=== PATIENT | male | born 1935 | race Caucasian/White ===

== ENCOUNTER 2016-08-06 22:09 | Inpatient (IN) | payer MEDICARE ==
--- NOTE | ~2016-08-06 | CN ---
Consultation Report [facility] [address] [place]. [address] NAME: Danielle GONZALEZ V : 37 STATUS : ADM IN [facility]#: [id number] AGE: 81 ADM/REG DATE : 08/06/16 MR#: [id number] REPORT SERV DATE: 08/07/16 DICTATED BY: HARRISON ZURITA III DATE: 08/07/16 REPORT STATUS : Draft TRANSCRIBED BY: MODL DATE: 08/07/16 DATE OF CONSULTATION: 08/07/2016 REASON FOR CONSULT: Bladder cancer, hematuria, and UTI. HISTORY OF PRESENT ILLNESS: The patient is an 81-year-old white male, who was at a restaurant and became dizzy. He actually passed out and was brought to the emergency room where a CT showed left frontal lobe CVA. The symptoms subsequently subsided. He has a long history of transitional cell carcinoma having had a right nephrectomy and ureterectomy. 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 Approximately a year and a half ago, he underwent a left ureteral re-implant. This fall, he was discovered to have an extravesical mass, approximately 6 cm, with iliac nodes biopsy positive for transitional cell, this was noted to be invading the bladder wall, and the patient has had hematuria off and on since April. Recently, he had a UTI with enterococcus which was treated with Cipro; this was finished on Wednesday. He has had some voiding issues, mostly irritative with nocturia, urgency, and frequency of small amounts. He is on Flomax. He was admitted for possible UTI and stroke workup. PAST MEDICAL HISTORY: Includes chronic renal insufficiency, creatinine running from 1.8 to 2. He has congestive heart failure, coronary artery disease with previous stents, aortic stenosis with aortic valve regurgitation and a valve. He also has a history of hypothyroidism, atrial fibrillation, and BPH. MEDICATIONS: Can be found on the chart, did include aspirin and Flomax. He formerly was on Plavix, and this has been stopped. SOCIAL HISTORY: He does not drink or smoke, is . REVIEW OF SYSTEMS: Pertinent only for the above-noted symptoms. PHYSICAL EXAMINATION: GENERAL: On exam, he is alert and oriented. VITAL SIGNS: Stable. NECK: Supple. LUNGS: Clear. HEART: He has an irregular rhythm. ABDOMEN: Soft. Bowel sounds are present and active. Liver and spleen are not enlarged. There is fullness in the suprapubic area, but the patient did need to void at that time. : External genitalia are normal. EXTREMITIES: There is minimal pedal edema. LABORATORY DATA: His lab revealed a creatinine of 1.8, white count was 12.9, hemoglobin of 11.7, had greater than 182 rbc's and wbc's. Consultation Report [address] [place]. [address] NAME: Danielle GONZALEZ V : 37 STATUS : ADM IN PAT#: [id number] AGE: 81 ADM/REG DATE : 08/06/16 MR#: [id number] REPORT SERV DATE: 08/07/16 DICTATED BY: HARRISON ZURITA III DATE: 08/07/16 REPORT STATUS : Draft TRANSCRIBED BY: KAROLINA DATE: 08/07/16 CT showed the above-noted stroke. He received a dose of vancomycin and is now on Rocephin. IMPRESSION: Impression is that of 1. Acute versus subacute cerebrovascular accident which seems to have resolved. 2. Metastatic transitional cell carcinoma. The patient was discussed at [facility], and according Dr. Wallace's notes, no additional treatment, chemotherapy, or radiation was suggested. In his notes, he felt that the bladder invasion by the tumor would be managed with fulguration and possible radiation therapy if bleeding became profuse. At this time, his urinalysis may or may not reflect a urinary tract infection. He has been on Cipro and his symptoms which do include a fever several weeks ago have resolved. RECOMMENDATIONS: Recommendations for ongoing treatment would be: 1. To await a culture. I am going to check a postvoid residual. The patient is adamant about not having a catheter, so if it is elevated, we may do intermittent catheterization on him. 2. Stroke prevention. We would prefer not for him to be on anticoagulants if at all possible since this will very likely precipitate significant bleeding. Dr. Wallace will be back Wednesday, Dr. Schneider will be covering over the weekend. OB/MODL Harrison Zurita III, M.D. / [id number] CC: Bryce Rodriguez M.D.
--- NOTE | ~2016-08-06 | DS ---
Discharge Summary [facility] [address] [place]. [address] NAME: Danielle GONZALEZ V : 37 STATUS : DIS IN PAT#: [id number] AGE: 81 ADM/REG DATE : 08/06/16 MR#: [id number] REPORT SERV DATE: 08/12/16 DICTATED BY: NICK VALENCIA DATE: 08/11/16 REPORT STATUS : Draft TRANSCRIBED BY: MODL DATE: 08/11/16 ADMISSION DATE: 08/06/2016 DISCHARGE DATE: 08/11/2016 DISCHARGE DIAGNOSES: 1. Fever, high WBC count, postobstruction. 2. 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 3. Syncopal episode, 08/06/2016. 4. Chronic atrial fibrillation. 5. Chronic kidney disease, stage 3. CONSULTATIONS: 1. , Dr. Harrison Zurita. 2. Neuro, Debra Marr, [facility]. IMAGIN. CT brain, 08/06/2016. Impression: Suspected acute to subacute 1 x 2.5 cm anterior left frontal lobe CVA extending from the periventricular deep white matter adjacent to the left frontal horn, to the overlying frontal lobe cortex. Only mild localized mass effect on the overlying sulci. Mild diffuse cerebral changes. 2. Chest x-ray, 08/07/2016. Mild venous congestion with minimal bibasilar atelectasis. Stable enlargement of the cardiac silhouette with evidence of previous sternotomy and pacemaker placement. 3. MRI of the brain, 08/07/2016. Impression: Limited examination without contrast. Finding in the left frontal lobe suggest remote infarction. No mass effect or resected diffusion is seen to suggest metastasis or acute infarction. 4. CT abdomen and pelvis, 08/08/2016. Impression: Enlarging soft tissue mass in the left pelvis along the expected course of the left pelvic ureter, invading into the left lateral wall, measuring up to 9 x 9.5 x 10.7 x 9.4 cm enlarging compared to 05/19/2016, consistent with enlarging recurrent urethral malignancy. Stable probable mildly hyperdense 1.7 cm left renal cortical cyst upper pole left kidney. Probable small left adrenal adenomas thickening the apex of the left adrenal gland. Stable changes of the right adrenal adrenalectomy and nephrectomy, and ventral mesh hernia repair. HOSPITAL COURSE: Please refer to history and physical dictated by Dr. Doss on 08/07/2016 as well as consultation notes for complete admission details. This patient is an 81-year-old gentleman, who has a known history of bladder cancer followed by Dr. Wallace as well as stage 3 chronic kidney disease caused to the left kidney after a right nephrectomy, congestive heart failure, aortic stenosis. Upon admission, the patient had been unable to eat, became dizzy, and passed out. The patient was brought to [facility] via ambulance. The patient was admitted for further evaluation and testing due to progression of disease. The patient has been discharged home with [facility] per the patient and 's request. Discharge warranted per Hospice of Discharge Summary [place] [id number] [facility] [place]. [address] NAME: Danielle GONZALEZ V : 37 STATUS : DIS IN [facility]#: [id number] AGE: 81 ADM/REG DATE : 08/06/16 MR#: [id number] REPORT SERV DATE: 08/12/16 DICTATED BY: NICK VALENCIA DATE: 08/11/16 REPORT STATUS : Draft TRANSCRIBED BY: KAROLINA DATE: 08/11/16 Gaffney. This discharge took less than 30 minutes. [facility]/KAROLINA Nick Valencia NP / [id number] CC: MD Ashish Conroy M.D.
--- NOTE | ~2016-08-06 | HP ---
History And Physical [place] [address] [facility] [place]. [address] NAME: Danielle GONZALEZ V : 37 STATUS : ADM Jessica PAT#: [id number] AGE: 81 ADM/REG DATE : 08/06/16 MR#: [id number] REPORT SERV DATE: 08/07/16 DICTATED BY: JEFFERY ANGELES DATE: 08/07/16 REPORT STATUS : Draft TRANSCRIBED BY: MODL DATE: 08/07/16 DATE OF ADMISSION: 08/06/2016 CHIEF COMPLAINT: Passed out at a restaurant today. HISTORY OF PRESENT ILLNESS: This is an 81-year-old male with a history of bladder cancer, followed by Dr. Chucky Wallace, stage III chronic kidney disease caused to the left kidney after right nephrectomy, congestive heart failure, aortic stenosis with bioprosthetic valve AVR, who was at the [employer] this evening with his for dinner. After dinner, he had to go to the restroom and had no issues. He walked out to the restroom and suddenly started feeling very unstable. He felt like he was very dizzy and his legs were giving away. His was at bedside, noticed this, and he confirmed that he was not feeling right at all. She immediately made him sit in the lobby on a bench whereupon Mr. Gonzalez leaned back and passed out. He was sliding to the ground when some of the people around him some ladies offered help and lowered him to the ground. EMS was summoned and the patient was brought to the emergency room here. In the emergency room, initial workup revealed he had a urinary tract infection, leukocytosis, and a CT scan of his head showed acute to subacute 1-2.5 cm anterior left frontal lobe CVA. Hospitalist Service was asked to admit him for further evaluation and treatment. At the time of my evaluation, Mr. Gonzalez's symptoms had quite resolved. He had no residual neurological problems at this time. He denied any chest pain or palpitations. He had no orthopnea. He had no cough, hemoptysis, night sweats, or weight loss. He has not had any recent fevers, chills, nausea, vomiting, or diarrhea. No other history of recent travel or exposures other than those mentioned above. He denied any hematemesis, hematochezia, or hematuria. PAST MEDICAL HISTORY: Significant for history of ongoing bladder cancer followed by Dr. Wallace, history of chronic kidney disease stage III, solitary left kidney after right nephrectomy, history of congestive heart failure, coronary artery disease with percutaneous intervention, aortic stenosis status post AVR with a bioprosthetic valve, history of hypothyroidism, atrial fibrillation, obstructive sleep apnea on CPAP therapy, melanoma, and benign prostatic hypertrophy. SOCIAL HISTORY: He does not smoke, drink, or use recreational drugs. 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 FAMILY HISTORY: Noncontributory. MEDICATIONS: At home were reviewed by me in the chart today and reordered by me. REVIEW OF SYSTEMS: As in history of present illness. All other systems were reviewed in detail and are quite unremarkable. History And Physical [place] [address] [facility] [place]. [address] NAME: Danielle GONZALEZ V : 37 STATUS : ADM Jessica PAT#: [id number] AGE: 81 ADM/REG DATE : 08/06/16 MR#: [id number] REPORT SERV DATE: 08/07/16 DICTATED BY: JEFFERY ANGELES DATE: 08/07/16 REPORT STATUS : Draft TRANSCRIBED BY: KAROLINA DATE: 08/07/16 PHYSICAL EXAMINATION: GENERAL: This is a pleasant 81-year-old, not in any acute distress. HEENT: Head is atraumatic, normocephalic. He is alert, awake, oriented to time, place, and person. His pupils are equal, reacting to light and accommodating. External ocular muscles are intact. Membranes are moist and pink. Sclerae are nonicteric. NECK: Supple with no jugular venous distention, lymphadenopathy, or thyromegaly. LUNGS: Clear to auscultation with no wheezes, rubs, or crackles. HEART: Heart sounds were regular with no murmurs, rubs, or gallops. ABDOMEN: Soft, nontender. Bowel sounds are present. EXTREMITIES: Showed no cyanosis, clubbing, or edema. NEUROLOGIC: Grossly intact at the time of my evaluation. VITAL SIGNS: Vital signs today showed a temperature of 98.4, pulse 80, respirations 18 a minute, blood pressure was 110/60, oxygen saturations were 93% on room air. LABORATORY DATA: Reviewed on the Tapp[employer] system showed sodium of 143, potassium 3.6, chloride 109, CO2 of 22, BUN was 37 with a creatinine of 1.80. His glucose was 140. Troponin I was 0.02 today and CBC showed a white blood cell count of 12,900, hemoglobin was 11.7, hematocrit 34.9, platelet count was 195,000. Urinalysis showed large blood, moderate leukocyte esterase, nitrite was negative, and greater than 182 rbc's and greater than 182 wbc's as well. Films of the CT scan of his brain were reviewed by me on the PACS today and official radiology report was also reviewed. There is acute to subacute 1-2.5 cm anterior left frontal lobe CVA. Twelve-lead EKG done in the emergency room was reviewed and interpreted by me. There is atrial paced rhythm at a rate of 78 with right bundle branch block. IMPRESSION: 1. Syncope and collapse. 2. Urinary tract infection. 3. Leukocytosis. 4. Acute versus subacute cerebrovascular accident. 5. Bladder cancer. 6. Chronic kidney disease stage III. 7. Aortic stenosis status post aortic valve replacement with a bioprosthetic valve. 8. Hypothyroidism. 9. Obstructive sleep apnea on CPAP therapy. 10.Benign prostatic hypertrophy. 11.Atrial fibrillation. PLAN: We will admit Mr. Gonzalez to the Hospitalist Service to a telemetry bed with neuro checks. After cultures are obtained, we will start him on empiric IV antibiotics. We will follow non-tPA stroke orders. Go ahead and consult Neurology Service to see him in the morning. We will get an MRI/MRA of his brain if possible, otherwise a CTA of his brain. We will also get an echocardiogram and follow the protocol. We will start him on aspirin and statins and other medications per protocol. He will be on SCDs for DVT prophylaxis and proton pump inhibitors. We will also check his TSH and continue his CPAP therapy while here. We will also go ahead and consult Dr. Chucky Wallace to see him in the morning. History And Physical [address] [address] NAME: Danielle GONZALEZ V : 37 STATUS : ADM Jessica PAT#: [id number] AGE: 81 ADM/REG DATE : 08/06/16 MR#: [id number] REPORT SERV DATE: 08/07/16 DICTATED BY: JEFFERY ANGELES DATE: 08/07/16 REPORT STATUS : Draft TRANSCRIBED BY: KAROLINA DATE: 08/07/16 I have discussed the above plans with the patient and the family. Questions were answered and they are agreeable to the above recommendations. Hospitalist Service will be following him during his stay. /KAROLINA Jeffery Angeles M.D. / [id number] CC: Bryce Kinsey M.D.
--- NOTE | ~2016-08-06 | CN ---
Consultation Report [facility] [address] [place]. [address] NAME: Danielle GONZALEZ V : 37 STATUS : ADM IN [facility]#: [id number] AGE: 81 ADM/REG DATE : 08/06/16 MR#: [id number] REPORT SERV DATE: 08/07/16 DICTATED BY: MIGUEL LOJA DATE: 08/07/16 REPORT STATUS : Draft TRANSCRIBED BY: MODL DATE: 08/07/16 NEUROLOGY CONSULTATION DATE OF CONSULTATION: 08/07/2016 REASON FOR CONSULTATION: TIA. HOSPITALIST: Dr. Brandan Cano. HISTORY OF PRESENT ILLNESS: The patient is an 81-year-old male, who went with his and sister to [facility] yesterday to celebrate his sister's 88th birthday . He felt fine and got up after dinner to go to the restroom. He walked out of the restroom and felt "funny and unstable". He felt imbalanced and his got up to help him. He sat down on the bench and "passed out". He passed out only momentarily, his stated it was 5 to 10 seconds and he came to. She mentioned that his speech was not slurred. He did not complain of any visual problems. There was no deficits in strength or sensation. However, he was imbalanced. The patient has been in imbalance for a long time. So, this was not a new finding. Because of his syncopal episode, 911 was called, and he was brought to the hospital. After being evaluated, it was found that the patient had a urinary tract infection, and his CT scan showed that he had a left frontal infarction. Consequently, the patient was admitted for further evaluation and treatment. When questioned more extensively, the patient mentioned that he has a history of atrial fibrillation. He was placed on Pradaxa, but had a lot of urinary bleeding. The patient has a history of bladder cancer with an inoperable tumor. He has been told not to go on anticoagulants, because of his hematuria. At that time, he had his stroke, he was not even on aspirin. PAST MEDICAL HISTORY: Bladder cancer, chronic kidney disease stage III, congestive heart failure, aortic stenosis, hypothyroidism, atrial fibrillation, obstructive sleep apnea, BPH, coronary artery disease, and malignant melanoma. PAST SURGICAL HISTORY: Right nephrectomy, aortic valve replacement in 2014, coronary stent placement, and pacemaker placement. HOME MEDICATIONS: Tylenol p.r.n., Dulcolax 5 mg p.r.n., Coreg 3.125 mg p.o. twice a day, Colace 100 mg p.r.n., Xalatan eye drops one drop OD at bedtime, Synthroid 175 mcg daily, Protonix 40 mg daily, Klor-Con 20 mEq daily, Rythmol 225 mg t.i.d., Flomax 0.4 mg daily, Demadex 20 mg daily, and Ultram 50 mg daily p.r.n. ALLERGIES: NONE. SOCIAL HISTORY: The patient is . He had two children, one from cystic fibrosis at the age of fifteen. 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 He does not smoke, drink alcohol, or use illicits. Consultation Report [place] [id number] [facility] [place]. [address] NAME: Danielle GONZALEZ V : 37 STATUS : ADM IN [facility]#: [id number] AGE: 81 ADM/REG DATE : 08/06/16 MR#: [id number] REPORT SERV DATE: 08/07/16 DICTATED BY: MIGUEL LOJA DATE: 08/07/16 REPORT STATUS : Draft TRANSCRIBED BY: KAROLINA DATE: 08/07/16 FAMILY HISTORY: The patient's mother from old age at her 100. He has no history of his father. He has one sister, who is 88 years old, she has a history of ovarian breast cancer, diabetes, and coronary artery disease. REVIEW OF SYSTEMS: For pertinent positives, please see HPI. PHYSICAL EXAMINATION: GENERAL: The patient is an 81-year-old male, who stands 5 feet 10 inches tall, and weighs 249 pounds. VITAL SIGNS: He is afebrile. Heart rate is 74, respiratory rate 20, O2 saturations on room air 95%, and blood pressure 122/55. NEURO: The patient is alert. He is oriented x4. He is pleasant. He is very chatty and communicates appropriately. No dysarthria. No aphasia. Pupils are 3 mm, PERRLA. Cranial nerves are relatively intact. The patient does have a left facial droop (chronic). Finger- to-nose, [id number], no ataxia. No pronator drift, dysmetria, no tremor. Upper extremity strength is 4/5 bilaterally. Upper DTRs 1+ bilaterally. The patient denies any sensory deficits. Lower extremity strength is 4/5 bilaterally. Patellar reflexes 2+ bilaterally. Downgoing toes. Diminished sensation from mid calf to the toes (chronic). NECK: No carotid bruits, JVD, thyromegaly. CHEST: Slight expiratory wheezing. No cough. CARDIAC: Regular rhythm (an atrially paced grade 3/6 systolic murmur). LABORATORY DATA: CBC is normal. BMP shows a potassium of 3.3, BUN 30, creatinine 1.49. Cholesterol values are elevated, TSH 2.42. Urinalysis is positive for UTI. Chest x-ray, mild venous congestion. CT of the brain, infarct in the left frontal lobe. NIH stroke scale is zero. ASSESSMENT/PLAN: 1. Left frontal region stroke. At this point, the patient does not want to undergo an MRI. He is claustrophobic. His CT was positive for stroke. The patient's life expectancy is less than one year, thus he will not undergo carotid duplex study or echocardiogram with bubble study. The patient is not an anticoagulation candidate, because of his increased risk of bleeding due to his tumor. He will be placed on aspirin 325 mg daily and Lipitor 80 mg daily. PT/OT consult. Bedside dysphagia screen. 2. Atrial fibrillation. The patient will be continued on his current medications with only aspirin added. Thank you again for including us in consultation. We will continue to follow with you. RUI/KAROLINA Consultation Report [facility] [address] [facility] [place]. [address] NAME: Danielle GONZALEZ V : 37 STATUS : ADM IN [facility]#: [id number] AGE: 81 ADM/REG DATE : 08/06/16 MR#: [id number] REPORT SERV DATE: 08/07/16 DICTATED BY: MIGUEL LOJA DATE: 08/07/16 REPORT STATUS : Draft TRANSCRIBED BY: KAROLINA DATE: 08/07/16 JARAD Vincent / [id number] CC: Brandan Cano M.D. Ashish Martinez M.D.
--- NOTE | ~2016-08-06 | IDS ---
Interim Discharge Summary [facility] [address] [place]. [address] NAME: Danielle GONZALEZ V : 37 STATUS : ADM IN PAT#: [id number] AGE: 81 ADM/REG DATE : 08/06/16 MR#: [id number] REPORT SERV DATE: 08/09/16 DICTATED BY: ALIE CANO DATE: 08/09/16 REPORT STATUS : Draft TRANSCRIBED BY: MODL DATE: 08/09/16 ADMISSION DATE: 08/06/2016 DISCHARGE DATE: CONSULTANTS: 1. Harrison Zurita M.D. 2. Urologist covering forDr. Wallace. 3. Deyanira Marr, Neurology team nurse practitioner. PROBLEM LIST: 1. Syncopal episode, vagal versus rhythm-related problem. 2. Multiple frequent episodes of ventricular tachycardia. 3. Fever and leukocytosis with unclear source. 4. 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 5. Chronic atrial fibrillation with pacemaker and previous pulmonary vein isolation with Dr. Darrel Juarez. 6. History of major genitourinary bleeding, on Pradaxa for atrial fibrillation. 7. Tissue aortic valve replacement for aortic stenosis. 8. 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 9. Stage 3 chronic kidney disease. 10.Hypothyroidism. 11.Obstructive sleep apnea with CPAP use at home. 12.Old stroke. 13.History of previous gastric polyp, duodenal lump, and a pancreas cyst. HISTORY: This patient had been at a restaurant, suddenly got very dizzy and lost consciousness. He had a hot flash before he passed out. He had vomiting afterwards. He was brought to the ER at [facility] and CT scan of the brain done in the ER without contrast revealed acute to subacute 1 x 2.5 cm anterior left frontal lobe abnormality suggesting a stroke. No mass effect. He was referred to our team for inpatient care. Neurology saw him and felt because he had a pacer and advanced malignancy, they would not do an MRI; however, after I saw the patient and found out about his extensively advanced transitional cell cancer, I talked with him and his and asked them if he would be willing to undergo radiation to the brain if it was a metastasis. They were willing. Therefore, we did find out that his pacemaker was MRI compatible and had the pharmaceutical representative come in and turn it off for the procedure. The patient therefore underwent an MRI of brain on 08/07/2016. MRI of the brain, 08/07/2016, showed changes that are much more consistent with a remote, semi-acute infarction rather than metastatic or acute infarction. On exam in the hospital, he really did not have any focal deficits to suggest an acute infarction. He and family indicated that a few days prior to his presentation, he had an episode where the right side of his eye and face was not moving normally. No other details available. So, it is unclear if he had a syncopal episode due to vagal reaction because he did have hot flash before the Interim Discharge Summary [place] [id number] [facility] [place]. [address] NAME: Danielle GONZALEZ V : 37 STATUS : ADM IN PAT#: [id number] AGE: 81 ADM/REG DATE : 08/06/16 MR#: [id number] REPORT SERV DATE: 08/09/16 DICTATED BY: ALIE CANO DATE: 08/09/16 REPORT STATUS : Draft TRANSCRIBED BY: KAROLINA DATE: 08/09/16 nausea afterwards. It is unlikely to come because of the stroke. He during the interrogation of his pacemaker was noted to have multiple episodes (34 episodes) of ventricular tachycardia, the longest of which was reported to be four minutes. He also was noted on telemetry here to have a burst of nonsustained ventricular tachycardia. Because of this, we have asked his mica inspector, Dr. Darrel Juarez to see him in consultation to assess whether these are aberrant episodes of rapid atrial fib or whether this is ventricular tachycardia. At this time, we are waiting for that consultation to still take place. On the afternoon of 08/08/2016, the patient spiked a fever up to 102.5. His white count has been elevated. He has no focal signs of infection. He had a recent urinary tract infection, for which he took Cipro. He has no dysuria. No urinary hesitancy. He does admit frequency. The urine analysis that was obtained when he came in on 08/06/2016 revealed large amount of blood, moderate leukocyte esterase, greater than 182 red blood cells and white blood cells, many white blood cell clumps, a few budding yeast, and occasional bacteria. However, the culture of that urine only grew out less than 5000 mixed hu. Two blood cultures negative so far. Two new ones are pending. His chest x-ray on 08/07/2016 showed possible minimal vascular congestion with minimal basilar atelectasis and cardiomegaly and pacer. We did go ahead and did a CT scan of the abdomen and pelvis without contrast on 08/08/2016. It does show enlarging soft tissue mass, left pelvis along the course of the left pelvic ureter and invading the bladder wall, 9.5 x 10.7 x 9.4 cm enlarged compared to 05/19/2016 consistent with his urothelial malignancy. There was [id number] left hydronephrosis consistent with partial obstruction of that left ureter. Stable, probable hyperdense 1.7 cm left renal cortical cyst, probable small left adrenal adenoma. He has had previous right nephrectomy and adrenalectomy. He has some cardiomegaly, some atelectasis, and a suspected high-riding left testicle within the left inguinal canal. Because of the fever and the left-sided hydronephrosis and the fact he only has one kidney, I am going to ask urology, Dr. Zurita who is covering for Dr. Wallace to come back and see whether he thinks anything such as a percutaneous procedure would need to be done. Throughout, the patient has been pleasant and cooperative. He really has very few symptoms whatsoever. He, in discussion with me and with his , made it clear he is DNR/DNI and that paperwork has been filled out. RSG/MODL Alie Cano M.D. / [id number] CC: Alie Cano M.D. Interim Discharge Summary [address] [place] [facility] [address] NAME: Danielle GONZALEZ V : 37 STATUS : ADM IN [facility]#: [id number] AGE: 81 ADM/REG DATE : 08/06/16 MR#: [id number] REPORT SERV DATE: 08/09/16 DICTATED BY: ALIE CANO DATE: 08/09/16 REPORT STATUS : Draft TRANSCRIBED BY: KAROLINA DATE: 08/09/16 Ashish Martinez M.D.
[2016-08-06 22:06] LABS: BASOPHILS 0.2 %; BASOPHILS ABSOLUTE 0.02 10/3/uL (0.0-0.16); EOSINOPHILS 1.2 %; EOSINOPHILS ABSOLUTE 0.15 10/3/uL (0.0-0.53); HEMATOCRIT 34.9 % (40.0-51.0); HEMOGLOBIN 11.7 g/dL (13.6-17.8); IMMATURE GRANULOCYTES 0.8 %; LYMPHOCYTES 8.7 %; LYMPHOCYTES ABSOLUTE 1.12 10/3/uL (0.67-4.30); MEAN CORPUS HGB CONC 33.5 g/dL (32.0-36.0); MEAN CORPUSCULAR HEMOGLOB 29.3 pg (26.0-34.0); MEAN CORPUSCULAR VOLUME 87.3 fL (80-100); MEAN PLATELET VOLUME 9.6 fL (9.2-13.0); MONOCYTES 7.3 %; MONOCYTES ABSOLUTE 0.94 10/3/uL (0.21-1.20); NEUTROPHILS 81.8 %; NEUTROPHILS ABSOLUTE 10.54 10/3/uL (2.02-8.40); PLATELET COUNT 195 10/3/uL (150-400); RBC DISTRIBUTION WIDTH 15.8 % (12.0-16.0)
[2016-08-06 22:07] LABS: ER CBC TAT 0 Hrs 16 Mins; MANUAL DIFF NO %; WHITE BLOOD CELLS 12.9 10/3/uL (4.5-10.5)
[~2016-08-06 22:09] MED LIST: 8 HOUR650 MG PO; ASA5GR PO; ASAB PO; BACDS PO; BEN25 PO; CARD120 PO; CLARIT10 PO; COREG3 PO; DEMA10T PO; DEMA20 PO; DIGITEK0.125 MG PO; DSS PO; FISH OIL 1,0001 EAC4 PO; FISH-EPA1000 MG PO; FLOMAX4 PO; KLOR-CON M2020 MEQ PO; L20 PO; LAN125 PO; LEVOTHYROXINE; LIPITOR20 PO; LOVENOX120 SC; NEXIUM40 PO; NORCO1 TA1 PO; OCUVITE PO; PLAVIX PO; PROTONIX PO; RYTHMOL SR425 MG PO; RYTHMOL225 MG PO; STOOL SOFTEN100 MG PO; SYNTHROID137 MCG PO; SYNTHROID175 MCG PO; T PO; TEARS PLUS OPH; TRICOR145 PO; ULTRAM50 PO; VASOTEC5 PO; VITAMIN D1000 UNI1 PO; XALAT OPH; Z-PAK PO; ZAROX2.5B PO; [UNRECOGNIZED DRUG - OTHER]; [UNRECOGNIZED DRUG - OTHER] IM
[2016-08-06 22:12] LABS: CALCIUM, SERUM 8.8 MG/DL (8.5-10.4); CHLORIDE, SERUM 109 MMOL/L (96-112); GFR AFRICAN AMERICAN 40 ML/MIN (>=60); GFR NON AFRICAN AMERICAN 35 ML/MIN (>=60); POTASSIUM, SERUM 3.6 MMOL/L (3.5-5.3); SODIUM, SERUM 143 MMOL/L (135-148)
[2016-08-06 22:13] LABS: BUN (BLOOD UREA NITROGEN) 37 MG/DL (6-23); CO2 (CARBON DIOXIDE) 22 MMOL/L (24-34); GLUCOSE, SERUM 140 MG/DL (60-99)
[2016-08-06 23:39] LABS: ASCORBIC ACID (UR NOT ORDER) NEG (NEG); BILIRUBIN, URINE NEGATIVE (NEG); ER URINALYSIS TAT 0 Hrs 00 Mins; KETONE, URINE NEGATIVE (NEG); LEUKOCYTE ESTERASE(NOT OR MOD (NEG); NITRITE (URINE) NEG (NEG)
[2016-08-06 23:39] LABS: TROPONIN I 0.02 NG/ML (<0.05)
[2016-08-06 23:43] LABS: WBC (NOT ORDERED) (RFLEX) > 182 (0-5)
[2016-08-07] MEDS ORDERED: PROTONIX PO (01:31)
[2016-08-07] MEDS ORDERED: FLOMAX4 PO (01:31)
[2016-08-07] MEDS ORDERED: CIP5 PO (01:31)
[2016-08-07] MEDS ORDERED: SYNTHROID175 MCG PO (01:31)
[2016-08-07] MEDS ORDERED: COREG3 PO (01:32)
[2016-08-07] MEDS ORDERED: ULTRAM50 PO (01:32)
[2016-08-07] MEDS ORDERED: XALAT OPH (01:32)
[2016-08-07] MEDS ORDERED: T PO (01:33)
[2016-08-07] MEDS ORDERED: BIST PO (01:33)
[2016-08-07] MEDS ORDERED: DSS PO (01:33)
[2016-08-07] MEDS ORDERED: KLOR-CON M2020 MEQ PO (01:34)
[2016-08-07] MEDS ORDERED: DEMA20 PO (01:34)
[2016-08-07] MEDS ORDERED: RYTHMOL225 MG PO (01:34)
[2016-08-07 08:47] LABS: BASOPHILS 0.2 %; BASOPHILS ABSOLUTE 0.02 10/3/uL (0.0-0.16); EOSINOPHILS 1.7 %; EOSINOPHILS ABSOLUTE 0.18 10/3/uL (0.0-0.53); HEMATOCRIT 31.9 % (40.0-51.0); HEMOGLOBIN 10.8 g/dL (13.6-17.8); IMMATURE GRANULOCYTES 0.5 %; IMMATURE GRANULOCYTES ABSOLUTE 0.05 10/3/uL (0.0-0.11); LYMPHOCYTES ABSOLUTE 0.95 10/3/uL (0.67-4.30); MEAN CORPUS HGB CONC 33.9 g/dL (32.0-36.0); MEAN CORPUSCULAR HEMOGLOB 28.7 pg (26.0-34.0); MEAN CORPUSCULAR VOLUME 84.8 fL (80-100); MEAN PLATELET VOLUME 9.6 fL (9.2-13.0); MONOCYTES 9.6 %; MONOCYTES ABSOLUTE 1.02 10/3/uL (0.21-1.20); NEUTROPHILS ABSOLUTE 8.38 10/3/uL (2.02-8.40); PLATELET COUNT 167 10/3/uL (150-400); RED CELL COUNT 3.76 10/6/uL (4.7-6.1); WHITE BLOOD CELLS 10.6 10/3/uL (4.5-10.5)
[2016-08-07 08:49] LABS: MANUAL DIFF NO %
[2016-08-07 09:00] LABS: INTERNATIONAL NORMAL RATI 1.2 UNITS (-); PROTIME (NOT ORD) 14.9 SEC (12.0-14.5)
[2016-08-07 09:01] LABS: PARTIAL THROMBO TIME 37.4 SEC (22.5-37.2)
[2016-08-07 09:12] LABS: CALCIUM, SERUM 8.6 MG/DL (8.5-10.4); CHLORIDE, SERUM 109 MMOL/L (96-112); CHOL/HDL RATIO(NOT ORDER) 4.1 (0-5); CHOLESTEROL 122 MG/DL (< 200); CO2 (CARBON DIOXIDE) 21 MMOL/L (24-34); CPK 58 U/L (0-200); CREATININE 1.49 MG/DL (0.70-1.30); GFR AFRICAN AMERICAN 51 ML/MIN (>=60); GFR NON AFRICAN AMERICAN 44 ML/MIN (>=60); HDL CHOLESTEROL 30 MG/DL (> 39); LDL CHOLESTEROL 45 MG/DL (< 130); NON-HDL CHOLESTEROL 92 MG/DL (< 160); PHOSPHORUS, SERUM 3.1 MG/DL (2.5-4.5); POTASSIUM, SERUM 3.3 MMOL/L (3.5-5.3); SODIUM, SERUM 144 MMOL/L (135-148); TRIGLYCERIDE 236 MG/DL (< 150); TROPONIN I 0.02 NG/ML (<0.05)
[2016-08-07 09:13] LABS: BUN (BLOOD UREA NITROGEN) 30 MG/DL (6-23); CK-MB 2.2 NG/ML; GLUCOSE, SERUM 99 MG/DL (60-99)
[2016-08-07 12:48] LABS: SGOT(AST) 23 U/L (5-40); SGPT(ALT) 25 U/L (5-65); TOTAL BILIRUBIN 0.3 MG/DL (0-1.2); TOTAL PROTEIN 6.1 G/DL (6.0-8.5)
[2016-08-07 12:50] LABS: ALBUMIN 2.5 G/DL (3.5-5.0); ALKALINE PHOSPHATASE 73 U/L (45-117); DIRECT BILIRUBIN 0.1 MG/DL (0.0-0.4); FOLATE 9.3 NG/ML (>5.2); INDIRECT BILIRUBIN(NOT ORDER) 0.2 MG/DL (0.1-0.9)
[2016-08-07 15:05] LABS: CPK 58 U/L (0-200); TROPONIN I <0.02 NG/ML (<0.05)
[2016-08-07 15:06] LABS: CK-MB 2.1 NG/ML
[2016-08-07 22:46] LABS: CPK 54 U/L (0-200); TROPONIN I 0.02 NG/ML (<0.05)
[2016-08-07 22:47] LABS: CK-MB 1.2 NG/ML
[2016-08-08 06:24] LABS: BASOPHILS 0.1 %; BASOPHILS ABSOLUTE 0.02 10/3/uL (0.0-0.16); EOSINOPHILS 2.6 %; EOSINOPHILS ABSOLUTE 0.35 10/3/uL (0.0-0.53); HEMATOCRIT 34.5 % (40.0-51.0); HEMOGLOBIN 11.5 g/dL (13.6-17.8); IMMATURE GRANULOCYTES 0.6 %; IMMATURE GRANULOCYTES ABSOLUTE 0.08 10/3/uL (0.0-0.11); LYMPHOCYTES ABSOLUTE 1.21 10/3/uL (0.67-4.30); MEAN CORPUS HGB CONC 33.3 g/dL (32.0-36.0); MEAN CORPUSCULAR HEMOGLOB 28.7 pg (26.0-34.0); MEAN PLATELET VOLUME 9.5 fL (9.2-13.0); MONOCYTES 9.2 %; MONOCYTES ABSOLUTE 1.24 10/3/uL (0.21-1.20); NEUTROPHILS 78.5 %; PLATELET COUNT 194 10/3/uL (150-400); RBC DISTRIBUTION WIDTH 16.2 % (12.0-16.0); RED CELL COUNT 4.01 10/6/uL (4.7-6.1); WHITE BLOOD CELLS 13.5 10/3/uL (4.5-10.5)
[2016-08-08 06:31] LABS: MANUAL DIFF NO %
[2016-08-08 06:37] LABS: CALCIUM, SERUM 9.2 MG/DL (8.5-10.4); CHLORIDE, SERUM 110 MMOL/L (96-112); CO2 (CARBON DIOXIDE) 24 MMOL/L (24-34); CREATININE 1.65 MG/DL (0.70-1.30); GFR AFRICAN AMERICAN 45 ML/MIN (>=60); GFR NON AFRICAN AMERICAN 39 ML/MIN (>=60); GLUCOSE, SERUM 94 MG/DL (60-99); POTASSIUM, SERUM 3.7 MMOL/L (3.5-5.3); SODIUM, SERUM 144 MMOL/L (135-148)
[2016-08-08 06:38] LABS: BUN (BLOOD UREA NITROGEN) 24 MG/DL (6-23)
[2016-08-09 06:53] LABS: BASOPHILS 0.1 %; BASOPHILS ABSOLUTE 0.02 10/3/uL (0.0-0.16); EOSINOPHILS 1.4 %; HEMATOCRIT 33.9 % (40.0-51.0); HEMOGLOBIN 11.3 g/dL (13.6-17.8); IMMATURE GRANULOCYTES 0.3 %; IMMATURE GRANULOCYTES ABSOLUTE 0.05 10/3/uL (0.0-0.11); LYMPHOCYTES 8.5 %; LYMPHOCYTES ABSOLUTE 1.23 10/3/uL (0.67-4.30); MEAN CORPUS HGB CONC 33.3 g/dL (32.0-36.0); MEAN CORPUSCULAR HEMOGLOB 28.4 pg (26.0-34.0); MEAN CORPUSCULAR VOLUME 85.2 fL (80-100); MEAN PLATELET VOLUME 9.5 fL (9.2-13.0); MONOCYTES 9.8 %; MONOCYTES ABSOLUTE 1.41 10/3/uL (0.21-1.20); NEUTROPHILS 79.9 %; NEUTROPHILS ABSOLUTE 11.53 10/3/uL (2.02-8.40); PLATELET COUNT 182 10/3/uL (150-400); RBC DISTRIBUTION WIDTH 16.2 % (12.0-16.0); RED CELL COUNT 3.98 10/6/uL (4.7-6.1); WHITE BLOOD CELLS 14.4 10/3/uL (4.5-10.5)
[2016-08-09 07:02] LABS: MANUAL DIFF NO %
[2016-08-09 07:06] LABS: A/G RATIO 0.7 (0.7-1.9); ALBUMIN 2.7 G/DL (3.5-5.0); BUN (BLOOD UREA NITROGEN) 23 MG/DL (6-23); CALCIUM, SERUM 9.2 MG/DL (8.5-10.4); CHLORIDE, SERUM 105 MMOL/L (96-112); CO2 (CARBON DIOXIDE) 24 MMOL/L (24-34); CREATININE 1.74 MG/DL (0.70-1.30); GFR AFRICAN AMERICAN 42 ML/MIN (>=60); GFR NON AFRICAN AMERICAN 36 ML/MIN (>=60); GLUCOSE, SERUM 93 MG/DL (60-99); POTASSIUM, SERUM 4.1 MMOL/L (3.5-5.3); SGOT(AST) 21 U/L (5-40); SGPT(ALT) 27 U/L (5-65); SODIUM, SERUM 140 MMOL/L (135-148); TOTAL PROTEIN 6.7 G/DL (6.0-8.5)
[2016-08-09 07:07] LABS: ALKALINE PHOSPHATASE 59 U/L (45-117)
[2016-08-09 08:03] LABS: PROCALCITONIN 0.22 ng/mL (<0.5)
[2016-08-09 20:22] LABS: ASCORBIC ACID (UR NOT ORDER) NEG (NEG); BILIRUBIN, URINE NEGATIVE (NEG); KETONE, URINE NEGATIVE (NEG); LEUKOCYTE ESTERASE(NOT OR LARGE (NEG)
[2016-08-09 20:23] LABS: WBC (NOT ORDERED) (RFLEX) > 182 (0-5)
[2016-08-10 06:57] LABS: BASOPHILS 0.2 %; BASOPHILS ABSOLUTE 0.02 10/3/uL (0.0-0.16); EOSINOPHILS 3.2 %; HEMATOCRIT 33.6 % (40.0-51.0); IMMATURE GRANULOCYTES 0.4 %; IMMATURE GRANULOCYTES ABSOLUTE 0.04 10/3/uL (0.0-0.11); LYMPHOCYTES 12.3 %; LYMPHOCYTES ABSOLUTE 1.16 10/3/uL (0.67-4.30); MANUAL DIFF NO %; MEAN CORPUS HGB CONC 32.7 g/dL (32.0-36.0); MEAN CORPUSCULAR HEMOGLOB 28.6 pg (26.0-34.0); MEAN CORPUSCULAR VOLUME 87.5 fL (80-100); MEAN PLATELET VOLUME 9.4 fL (9.2-13.0); MONOCYTES 8.4 %; MONOCYTES ABSOLUTE 0.79 10/3/uL (0.21-1.20); NEUTROPHILS 75.5 %; NEUTROPHILS ABSOLUTE 7.13 10/3/uL (2.02-8.40); PLATELET COUNT 167 10/3/uL (150-400); RBC DISTRIBUTION WIDTH 15.9 % (12.0-16.0); RED CELL COUNT 3.84 10/6/uL (4.7-6.1); WHITE BLOOD CELLS 9.4 10/3/uL (4.5-10.5)
[2016-08-10 07:12] LABS: CALCIUM, SERUM 9.1 MG/DL (8.5-10.4); CHLORIDE, SERUM 108 MMOL/L (96-112); CO2 (CARBON DIOXIDE) 25 MMOL/L (24-34); CREATININE 1.79 MG/DL (0.70-1.30); GFR AFRICAN AMERICAN 41 ML/MIN (>=60); GFR NON AFRICAN AMERICAN 35 ML/MIN (>=60); POTASSIUM, SERUM 3.7 MMOL/L (3.5-5.3); SODIUM, SERUM 144 MMOL/L (135-148)
[2016-08-10 07:13] LABS: BUN (BLOOD UREA NITROGEN) 28 MG/DL (6-23); GLUCOSE, SERUM 130 MG/DL (60-99)
[2016-08-11 06:21] LABS: BASOPHILS 0.2 %; BASOPHILS ABSOLUTE 0.02 10/3/uL (0.0-0.16); EOSINOPHILS 3.8 %; EOSINOPHILS ABSOLUTE 0.31 10/3/uL (0.0-0.53); HEMATOCRIT 34.6 % (40.0-51.0); HEMOGLOBIN 11.5 g/dL (13.6-17.8); IMMATURE GRANULOCYTES 0.5 %; IMMATURE GRANULOCYTES ABSOLUTE 0.04 10/3/uL (0.0-0.11); LYMPHOCYTES 13.4 %; MEAN CORPUS HGB CONC 33.2 g/dL (32.0-36.0); MEAN CORPUSCULAR HEMOGLOB 29.1 pg (26.0-34.0); MEAN CORPUSCULAR VOLUME 87.6 fL (80-100); MEAN PLATELET VOLUME 9.6 fL (9.2-13.0); MONOCYTES 8.7 %; MONOCYTES ABSOLUTE 0.71 10/3/uL (0.21-1.20); NEUTROPHILS 73.4 %; PLATELET COUNT 181 10/3/uL (150-400); RBC DISTRIBUTION WIDTH 15.8 % (12.0-16.0); RED CELL COUNT 3.95 10/6/uL (4.7-6.1); WHITE BLOOD CELLS 8.2 10/3/uL (4.5-10.5)
[2016-08-11 06:23] LABS: MANUAL DIFF NO %
[2016-08-11 06:34] LABS: BUN (BLOOD UREA NITROGEN) 26 MG/DL (6-23); CHLORIDE, SERUM 108 MMOL/L (96-112); CO2 (CARBON DIOXIDE) 25 MMOL/L (24-34); CREATININE 1.68 MG/DL (0.70-1.30); GFR AFRICAN AMERICAN 44 ML/MIN (>=60); GFR NON AFRICAN AMERICAN 38 ML/MIN (>=60); POTASSIUM, SERUM 4.2 MMOL/L (3.5-5.3); SODIUM, SERUM 143 MMOL/L (135-148)
[2016-08-11 06:35] LABS: GLUCOSE, SERUM 171 MG/DL (60-99)
[2016-08-11] MEDS ORDERED: SPIRO25 PO (11:37)
[2016-08-11] MEDS ORDERED: ATV.5 PO (11:38)
[2016-08-11] MEDS ORDERED: NORCO1 TA1 PO (11:38)
[2016-08-11] MEDS ORDERED: [UNRECOGNIZED DRUG - OTHER] (11:39)
== END 2016-08-11 12:41 | disposition hospice, home (50) | DRG 65 ==
LOC: ER 22:09 → 1SO 23:59
PROVIDERS: Emergency Medicine; Hospitalist; Internal Medicine Pulmonary Disease; Nurse Practitioner; Urology
DX: I63.9 Cerebral infarction, unspecified (principal); N39.0 Urinary tract infection, site not specified; I47.2 Ventricular tachycardia; C67.8 Malignant neoplasm of overlapping sites of bladder; I48.2 Chronic atrial fibrillation; B95.2 Enterococcus as the cause of diseases classified elsewhere; N18.3 Chronic kidney disease, stage 3 (moderate); E03.9 Hypothyroidism, unspecified; N40.0 Benign prostatic hyperplasia without lower urinary tract symptoms; G47.33 Obstructive sleep apnea (adult) (pediatric); Z90.5 Acquired absence of kidney; Z98.890 Other specified postprocedural states; Z79.899 Other long term (current) drug therapy; Z95.2 Presence of prosthetic heart valve; Z80.3 Family history of malignant neoplasm of breast; Z80.41 Family history of malignant neoplasm of ovary; F40.240 Claustrophobia; Z95.0 Presence of cardiac pacemaker; E66.9 Obesity, unspecified; Z68.35 Body mass index [BMI] 35.0-35.9, adult
CPT/HCPCS: 70450; 70551; 71010; 74176; 80048; 80053; 80061; 80076; 81001; 82140; 82306; 82533; 82550; 82553; 82607; 82746; 83036; 83735; 84100; 84145; 84443; 84484; 85025; 85610; 85730; 87040; 87086; 93005; 96374; 97162-GP; 97166-GO; 99285; A9270-GY; G8978-CK-GP; G8979-CJ-GP; G8987-CK-GO; G8988-CK-GO; G8989-CK-GO; J2543; J3370